=== PATIENT | female | born 1970 | race Two or more races ===

== ENCOUNTER 2024-03-31 09:28 | Emergency (ER) | payer OTHER, SELFPAY ==
--- NOTE | ~2024-03-31 | US_ITS ---
EXAMINATION: RIGHT LOWER EXTREMITY DEEP VENOUS ULTRASOUND CLINICAL INFORMATION: Right lower extremity pain and elevated d-dimer. COMPARISON: None. TECHNIQUE: Duplex Doppler imaging with compression maneuvers were performed of the right lower extremity deep venous system. FINDINGS: The visualized common femoral, femoral and popliteal veins demonstrate normal compressibility and color flow without evidence of venous thrombosis. Visualized portions of the calf veins demonstrate normal color fill-in suggesting patency. There is no evidence of a Bonner's cyst. US/US venous duplex LE RT IMPRESSION: No evidence of deep venous thrombosis involving the right lower extremity. Electronically signed by: Tino Berrios MD 03/31/2024 11:21 AM EDT
--- NOTE | ~2024-03-31 | XR_ITS ---
EXAMINATION: XR CHEST CLINICAL INFORMATION: Chest pain COMPARISON: None available. TECHNIQUE: 2 views of the chest were obtained. FINDINGS: The mediastinal silhouette is normal. No abnormal tracheal deviation. The lungs are symmetrically adequately expanded. Probable central bronchial thickening. No focal consolidation, changes of congestion, pleural effusions or pneumothorax are seen. Regional skeleton is intact. Visualized upper abdomen is unremarkable. XR/XR chest 2V IMPRESSION: No radiographic evidence of pneumonia. No acute pulmonary process. Probable central bronchial thickening. Electronically signed by: Jean Carlos Lynch MD 03/31/2024 10:06 AM EDT
--- NOTE | ~2024-03-31 | CT_ITS ---
EXAMINATION: CT ANGIOGRAM CHEST CLINICAL INFORMATION: Right chest pain shortness of breath] lower extremity pain, recent knee replacement COMPARISON: None available. TECHNIQUE: Multiple axial images were obtained through the chest after the administration of 50 mL of Omnipaque 350 intravenous contrast. Extensive vascular post-processing including two-dimensional and three-dimensional reformatted images were created and reviewed on an independent workstation. This CT examination was performed using dose optimization techniques as appropriate, variously including the following: *Automated exposure control *Adjustment of mA and/or kV according to patient size (this includes techniques or standardized protocols for targeted exams where dose is matched to indication/reason for exam; i.e. extremities or head) *Use of iterative reconstruction technique DLP: 309 mGy-cm FINDINGS: QUALITY OF STUDY/CONTRAST BOLUS: Satisfactory PULMONARY ARTERIES: No central or segmental pulmonary emboli. Pulmonary artery is not enlarged. THORACIC AORTA: No aneurysm or dissection. LUNG/PLEURA: Respiratory motion artifact limits evaluation. Biapical pleural-parenchymal scarring. Slight emphysematous changes. No large or suspicious pulmonary nodules or masses are noted. Central airways are patent. No pneumothorax. No large pleural effusion. Bibasilar atelectasis. MEDIASTINUM: Heart is not enlarged. No pericardial effusion. No coronary artery calcifications are noted. No enlarged lymph nodes per size criteria. No evidence of septal bowing or right heart strain. CHEST WALL/AXILLA: No axillary or internal mammary lymphadenopathy. OSSEOUS STRUCTURES: No acute or suspicious osseous abnormality. UPPER ABDOMEN: Hepatic steatosis. No reflux of contrast into the hepatic veins to suggest elevated right heart pressures. CT/CT angio chest PE protocol IMPRESSION: 1. No central or segmental pulmonary emboli. 2. Hepatic steatosis. Electronically signed by: Shahana Miranda MD 03/31/2024 12:46 PM EDT
--- NOTE | 2024-03-31 09:31 | ECG_ITS ---
Test Reason : chest pain Blood Pressure : / mmHG Vent. Rate : 084 BPM Atrial Rate : 084 BPM P-R Int : 140 ms QRS Dur : 088 ms QT Int : 392 ms P-R-T Axes : 042 -16 020 degrees QTc Int : 463 ms Sinus rhythm with occasional , and consecutive Premature ventricular complexes Moderate voltage criteria for LVH, may be normal variant ( R in aVL , Ezequiel product ) Nonspecific T wave abnormality Abnormal ECG No previous ECGs available Referred By: Generic ED Physician Electronically Signed By:Jon Mcbride
[2024-03-31 09:40] VITALS: BP 144/86; PULSE 75; RESP 18; TEMP 36.8; O2SAT 96; BMI 32.0
--- NOTE | 2024-03-31 09:56 | ED_ITS ---
HPI - URI/Sore Throat General Chief Complaint: Upper Respiratory Symptoms Stated Complaint: CP since monday Time Seen by Provider: 03/31/24 09:50 Source: patient Mode of arrival: ambulatory Limitations: no limitations History of Present Illness HPI Narrative: Patient is a 53 old female who presents to the emergency department for evaluation. She states that over the past 3 days she has been experiencing a pain in her chest localized to the right lower costal border. She reports that initially woke her out of her sleep, and she has since noticed the pain to be worse if she is lying down or while she is sitting. She feels as though she can not take a deep breath. She does admit to having a recent dry nonproductive cough, sore throat, and bilateral ear discomfort without changes in hearing or drainage. She attempted to take ibuprofen as well as Tums and case was heartburn related neither of which provided her with any relief. She does state that on 12/06/2023 she underwent a right knee replacement with NE[employer] since then she has been having intermittent numbness and pain to the right lower extremity. Denies swelling to the extremity. Denies fevers, chills, headache, dizziness, neck pain, neck stiffness, nausea, vomiting, abdominal pain, genitourinary symptoms. Related Data Previous Rx's ?Medication ?Instructions ?Recorded azithromycin 250 mg tablet See Rx Instructions PO .COMPLEX #6 03/31/24 tabs Allergies Allergy/AdvReac Type Severity Reaction Status Date / Time cyclobenzaprine Allergy Rash Verified 03/31/24 09:42 [From Flexeril] Review of Systems 2 Review of Systems: Yes all other systems are reviewed and are negative PMFSH Past Medical History Attestation statement: The following information was validated with the patient. Source: old records reviewed Social History Social History Advance Directives: No Advance Directives Information Provided: Yes Do you have a plan to hurt others: No Plan Physical Exam 2 Vital Signs: Vital Signs: Last Vital Signs Temp 98.2 F 03/31/24 09:40 Pulse 75 03/31/24 09:40 Resp 18 03/31/24 09:40 BP 144/86 H 03/31/24 09:40 Pulse Ox 96 03/31/24 09:40 O2 Del Method Room Air 03/31/24 09:40 BMI result Body Mass Index 32.0 Appearance: Alert.?Oriented to person, place and time. No acute distress.?Normal affect. Eyes: Pupils equal, round and reactive to light.? ENT: TM with effusions bilaterally, no erythema or significant bulging to suggest AROM. Pharynx normal.?? Neck: Normal inspection.? Neck supple.??No cervical adenopathy CVS: Heart sounds normal. Normal heart rate and rhythm.? Pulses normal.?? Respiratory: No respiratory distress.? Lung sounds clear to auscultation bilaterally?? Abdomen: Soft and non-tender. Normoactive bowel sounds. Skin: Skin warm and dry.? Normal skin color.? ? Extremities: No lower extremity edema.? No calf tenderness upon palpation Neuro: Moves all extremities spontaneously. Sensation intact bilaterally. No motor deficits. Ambulates with normal steady gait. Course Reevaluation(s) Reevaluation #1: CXR is without evidence of pneumonia, central bronchial thickening likely. D- dimer is elevated 512, will obtain CT angio to exclude pulmonary embolism as well as venous duplex of the right lower extremity.. Time: 10:46 Reevaluation #2: Venous duplex ultrasound of the right lower extremity without evidence of DVT. CT angio of the chest without evidence of pulmonary embolism.. Stable for discharge home, pain likely pleuritic secondary to respiratory infection /bronchitis Medications Administered Discontinued Medications Generic Name Dose Route Start Last Admin Trade Name Freq PRN Reason Stop Dose Admin Iohexol 65 ml 03/31/24 11:38 03/31/24 11:38 Iohexol 350 Mg/Ml 100 Ml Infus..Btl IV 03/31/24 11:39 65 ml ONCE ONE Administration Medical Decision Making Medical Decision Making MDM Narrative: Patient is a 53 year old female presenting for evaluation of chest pain and cough as per HPI. COVID-19/influenza/RSV testing negative. Strep a testing negative, physical examination not consistent with RPA/CHIEF PSYCHOLOGIST. No consistent with Cristopher's angina. She has bilateral effusions but no evidence of acute otitis media, no mastoid tenderness. On evaluation she has 2+ DP/PT pulse bilaterally, has no right calf tenderness upon palpation despite her report of pain and intermittent numbness, I suspect these symptoms are most likely secondary to anticipated recovery from her knee replacement rather than DVT, at this time would defer venous duplex imaging. However, in light of this and her report of localized pain to the right chest seemingly pleuritic component, will assess D- dimer. Patient is without risk factors for ACS, plan to obtain EKG and troponin. She has had an associated cough coupled with her ear pain and sore throat, may be upper respiratory infection/possibly pneumonia, CXR to be obtained to evaluate for further. Overall she is Well-appearing, nontoxic, afebrile, no tachycardia or tachypnea/hypoxia. Speaking clear full sentences, ambulatory with steady gait. Differential Diagnosis Differential Diagnoses: The differential diagnosis associated with the presentation includes ( See narrative above) Admission/Observation Consideration of admission/observation: Escalation of care including admission/observation considered ( see narrative above) Lab Data MDM Lab Attestation statement: I reviewed the patient's lab results. ( see narrative above) CBC is without leukocytosis anemia or thrombocytopenia. No electrolyte duration. No IRINEO. 03/31/24 10:22 03/31/24 10:22 Labs: Lab Results 03/31/24 03/31/24 Range/Units 10:04 10:22 WBC 6.1 (4.8-10.8) X10*3/uL RBC 4.52 (4.20-5.50) X10*6/uL Hgb 14.6 (12.0-16.0) g/dl Hct 43.4 (37.0-47.0) % MCV 96.0 (80.0-98.0) fL MCH 32.3 (27.0-33.0) pg MCHC 33.6 (31.0-35.0) g/dl RDW 11.8 (11.0-16.0) % Plt Count 292 (160-400) X10*3/uL MPV 9.0 L (9.4-12.3) fL Immature Gran % (Auto) 0.2 (0.0-0.4) % Neut % (Auto) 68.2 (45-73) % Lymph % (Auto) 21.6 (20-40) % Beauregard % (Auto) 6.1 (2-11) % Eos % (Auto) 3.1 (0-4) % Baso % (Auto) 0.8 (0-2) % Lymph # (Auto) 1.3 (1.2-4.9) X10*3/uL Beauregard # (Auto) 0.4 (0.1-1.2) X10*3/uL Eos # (Auto) 0.2 (0.0-0.4) X10*3/uL Baso # (Auto) 0.1 (0.0-0.2) X10*3/uL Abs Immat Gran (auto) 0.01 (0.00-0.03) X10*3/uL Absolute Neuts (auto) 4.2 (2.0-8.3) x10*3/uL Absolute Nucleated RBC 0.000 (0.0-0.012) X10*3/uL Nucleated RBC % (auto) 0.0 (0.0-0.2) /100WBC PT 10.5 L (10.9-12.4) SEC INR 0.9 (0.9-1.1) D-Dimer High Sensitivty 512 NG/ML Sodium 140 (135-145) mmol/L Potassium 4.2 (3.3-5.1) mmol/L Chloride 102 (96-108) mmol/L Carbon Dioxide 29 (22-29) mmol/L Anion Gap 13 (12-20) BUN 18 H (9-16) mg/dL Creatinine 0.95 (0.5-1.4) mg/dL Estim Creat Clear Calc 63.4 Estimated GFR > 60 Random Glucose 110 (60-115) mg/dL Calcium 9.5 (8.4-10.2) mg/dL Total Bilirubin 0.5 (0.0-1.0) mg/dL AST 29 (5-31) U/L ALT 26 (0-31) U/L Alkaline Phosphatase 79 (39-117) U/L Troponin I High Sens < 2.7 (<3.5-17.0) ng/L Total Protein 7.8 (6.5-8.0) g/dL Albumin 4.6 (3.5-5.0) g/dL Influenza Type A (PCR) NEGATIVE (Negative) Influenza Type B (PCR) NEGATIVE (Negative) RSV RNA Qual (PCR) NEGATIVE (Negative) SARS-CoV-2 RNA (RT-PCR) NEGATIVE (Negative) S. pyogenes GrpA BRITTNEY Negative (Negative) Independent Interpretation I performed an independent interpretation of an: EKG Interpretation: Rate: 84 Rhythm:? Sinus rhythm with PVC Normal P waves.? Normal RUBEN.?? Normal QRS complex.?? ST T wave :??No ST elevation, no ST depression qTC: 463 prior studies:? None available for review The study has been interpreted contemporaneously by me. Radiology Impression Discussion of test interpretation with radiology: I have reviewed the radiologist's reading. Radiologist Impression: XR/XR chest 2V IMPRESSION: No radiographic evidence of pneumonia. No acute pulmonary process. Probable central bronchial thickening. US/US venous duplex LE RT IMPRESSION: No evidence of deep venous thrombosis involving the right lower extremity. External Record Review External record reviewed: Outpatient record Prescription Management I considered prescription management with: Pain Medication ( acetaminophen/ibuprofen) Discharge Plan Discharge Clinical Impression: Bronchitis Patient Disposition: Home, Self-Care Instructions: Acute Bronchitis (ED) Additional Instructions: Imaging today does not reveal blood clot in the leg nor in the lungs which is very reassuring. A prescription for azithromycin has been sent to your pharmacy please complete the entire course. Be sure to rest, stay well hydrated drinking plenty of fluids, eat small frequent meals. Tylenol/ibuprofen can be used as needed for fever/pain. [id number] cold medications may be helpful as well for symptoms. Saline nasal spray, humidifier may be helpful for nasal congestion. You may return to the emergency department with any new or worsening symptoms or concerns. Follow-up with your primary care provider as needed. Prescriptions: New azithromycin 250 mg tablet See Rx Instructions .ROUTE .COMPLEX Qty: 6 0RF Rx Instructions: For 250 mg dose pack: take 500 mg today (day 1), then 250 mg for 4 days (days 2-5) Referrals: Rodney Purdy MD [Primary Care Provider] - Print Language: Taiwanese
--- OUTSIDE RECORDS SUMMARY | 2024-03-31 09:59 | XMS_ITS | Continuity of Care Document ---
Author Organization [facility] Address [address] [place] [address]- Care Team Providers Care Bonding Equipment Operator Name Role Phone Rodney Purdy MD Primary Care Physician [place] [facility] [id number] Date(s): 07/28/23 - 08/27/23 [facility] [address] [place] [address]- Attending Physician: Mary Smith Admitting Physician: Mary Smith Referring Physician: AdmtrMary Allergies, Adverse Reactions, Alerts Substance Reaction Severity Status cyclobenzaprine rash Active Medications amoxicillin 500 mg oral tablet 0 Refills, Maintenance, 07/28/23 14:19:00 EST, Partial fill upon patient request if the prescription is for a schedule II opioid drug. Start Date: 07/28/23 Status: Ordered buPROPion 150 mg/24 hours (XL) oral tablet, extended release TAKE 1 TABLET BY MOUTH EVERY DAY DIRECTED Start Date: 07/28/23 Status: Ordered escitalopram 10 mg oral tablet TAKE 1 TABLET BY MOUTH EVERY DAY DIRECTED Start Date: 07/28/23 Status: Ordered Hair, Skin & Nails = 5 mg, By Mouth, Daily, 0 Refills, Maintenance, 11/08/21 17:58:00 EDT, Partial fill upon patient request if the prescription is for a schedule II opioid drug. Start Date: 11/08/21 Status: Ordered HydrOXYzine = 25 mg, Daily at bedtime, 0 Refills, Maintenance, 04/19/22 7:56:00 EST, Partial fill upon patient request if the prescription is for a schedule II opioid drug. Start Date: 04/19/22 Status: Ordered Magnesium Carbonate = 54 mg, By Mouth, Daily, 0 Refills, Maintenance, 11/08/21 17:59:00 EDT, Partial fill upon patient request if the prescription is for a schedule II opioid drug. Start Date: 11/08/21 Status: Ordered methocarbamol 750 mg oral tablet TAKE 1 TABLET BY MOUTH THREE TIMES DAILY FOR 10 DAYS DIRECTED Start Date: 07/28/23 Status: Ordered Misc Rx Puravive, probiotics, Vitamin B12, D3, Fish oil, Refills 0, Maintenance, 07/28/23 14:18:00 EST, Supply Start Date: 07/28/23 Status: Ordered Multivitamin Daily, 0 Refills, Maintenance, 11/08/21 17:59:00 EDT, Partial fill upon patient request if the prescription is for a schedule II opioid drug. Start Date: 11/08/21 Status: Ordered traZODone 50 mg oral tablet TAKE 1 TABLET BY MOUTH EVERY DAY AT BEDTIME Start Date: 07/28/23 Status: Ordered ValACYclovir By Mouth, 0 Refills, Maintenance, 11/08/21 17:59:00 EDT, Partial fill upon patient request if the prescription is for a schedule II opioid drug. Start Date: 11/08/21 Status: Ordered Vitamin C By Mouth, Daily, 0 Refills, Maintenance, 11/08/21 17:59:00 EDT, Partial fill upon patient request if the prescription is for a schedule II opioid drug. Start Date: 11/08/21 Status: Ordered Problem List Condition Confirmation Course Effective Dates Status H ealth Status Informant Carpal tunnel syndrome Confirmed Active History of IBS Confirmed Active Hyperlipidemia Confirmed Active Severe obesity (BMI 35.0-39.9) with comorbidity Confirmed Active Social History Social History Type Response Smoking Status Never (less than 100 in lifetime) entered on: 07/28/23 Sex Patient Care team information Care Team Personnel Name: Gurwinder ROBLES, Rodney Aguilera Position: [facility] Outreach Member Role: PCP Address: Address: [address] [place] [address]- Care Team Related Persons Name: MARY KEYES Address: home [address] [place] [address]
--- OUTSIDE RECORDS SUMMARY | 2024-03-31 09:59 | XMS_ITS | Continuity of Care Document ---
Author Organization [facility] Address [address] [place] [address]- Care Team Providers Care Material Stockkeeper Yard Name Role Phone Gurwinder ROBLES, Rodney Aguilera Primary Care Physician Encounter [facility] Date(s): 10/09/20 - 11/08/20 [facility] [address] [place] [id number] Attending Physician: Admtr, Ar8 Admitting Physician: Admtr, Ar8 Referring Physician: Admtr, Ar8 Allergies, Adverse Reactions, Alerts Substance Reaction Severity Status NKA Active
--- OUTSIDE RECORDS SUMMARY | 2024-03-31 09:59 | XMS_ITS | Continuity of Care Document ---
Author Organization [facility] Address [address] [place] [address]- Care Team Providers Care Lockstitch Lining Setter Name Role Phone Gurwinder ROBLES, Rodney Aguilera Primary Care Physician ( [phone] [place] [facility] [place] - 06/05/[address] [address]- Attending Physician: Mary Smith Admitting Physician: Mary Smith Referring Physician: AdmtrMary Allergies, Adverse Reactions, Alerts Substance Reaction Severity Status cyclobenzaprine Active Medications Hair, Skin & Nails = 5 mg, [...] opioid drug. Start Date: 11/08/21 Status: Ordered Multivitamin Daily, 0 Refills, Maintenance, 11/08/21 17:59:00 EDT, Partial fill upon patient request if the prescription is for a schedule II opioid drug. Start Date: 11/08/21 Status: Ordered norethindrone 5 mg oral tablet 5 mg, 1, tablet, By Mouth, Daily, # 30 tablet, Refills 0, Maintenance, 04/19/22 7:58:00 EST, Partial fill upon patient request if the prescription is for a schedule II opioid drug. Start Date: 04/19/22 Status: Ordered Sutab oral tablet See Instructions, complete as per split prep ins, # 1 kit, 0 Refills, Maintenance, 04/14/22 12:51:00 EST, [id number], Partial fill upon patient request if the prescription is for a schedule II opioid drug., complete as per split prep... Start Date: 04/14/22 Status: Ordered ValACYclovir By Mouth, 0 Refills, [...] of IBS Confirmed Active Hyperlipidemia Confirmed Active Obese class I Confirmed Active Patient Care team information Care Team Personnel Name: Gurwinder ROBLES, Rodney Aguilera Position: [facility] Outreach Member Role: PCP Address: Address: [address] [place] [address] Care Team Related Persons Name: MARY KEYES Address: [address] [address]
--- OUTSIDE RECORDS SUMMARY | 2024-03-31 09:59 | XMS_ITS | Continuity of Care Document ---
Author Organization [facility] Address [address] [place] [address]- Care Team Providers Care Fire Range Technician Name Role Phone Rodney Purdy MD Primary Care Physician [place] [facility] [place]14[place] 11/08/20 [facility] [address] [place] [id number] Attending Physician: Rodney Purdy MD Admitting Physician: Rodney Purdy MD Referring Physician: Rodney Purdy MD Allergies, Adverse Reactions, Alerts Substance Reaction Severity Status NKA Active
--- OUTSIDE RECORDS SUMMARY | 2024-03-31 09:59 | XMS_ITS | Continuity of Care Document ---
Author Organization [facility] Address [address] [place] [address]- Care Team Providers Care Automation Sales Manager Name Role Phone Gurwinder ROBLES, Rodney Aguilera Primary Care Physician Encounter [facility] Date(s): 05/05/21 - 05/05/[address] [address] Attending Physician: Surjit Morgan MD Allergies, Adverse Reactions, Alerts Substance Reaction Severity Status NKA Active
--- OUTSIDE RECORDS SUMMARY | 2024-03-31 09:59 | XMS_ITS | Continuity of Care Document ---
Author Organization [facility] Address [address] [place] [address]- Care Team Providers Care Core Inserter Name Role Phone Gurwinder ROBLES, Rodney Aguilera Primary Care Physician ( [phone] [place] [facility] [place] 07/22/22 - 08/21/[address] [address]- Attending Physician: Mary Smith Admitting Physician: Mary [...] kit, 0 Refills, Maintenance, 04/14/22 12:51:00 EST, [id number], Partial fill upon patient request if the [...] Personnel Name: Gurwinder ROBLES, Rodney Aguilera Position: [facility] Outreach Member Role: PCP Address: Address: [address] [place] [address] Care Team Related Persons Name: MARY KEYES Address: [address] [address]
--- OUTSIDE RECORDS SUMMARY | 2024-03-31 09:59 | XMS_ITS | Continuity of Care Document ---
Author Organization [facility] Address [address] [place] [address]- Care Team Providers Care Special Education Tutor Name Role Phone Rodney Purdy MD Primary Care Physician Encounter [facility] Date(s): 11/11/19 - 03/25/[address] [address]- [facility] Attending Physician: Manuel Fregoso MD Admitting Physician: Manuel Fregoso MD Referring Physician: Manuel Fregoso MD Allergies, Adverse Reactions, Alerts Substance Reaction Severity Status NKA Active
--- OUTSIDE RECORDS SUMMARY | 2024-03-31 09:59 | XMS_ITS | Continuity of Care Document ---
Author Organization [facility] Address [address] [place] [address]- Care Team Providers Care Girls Tennis Coach Name Role Phone Rodney Purdy MD Primary Care Physician [place] [facility] [place](s): 12/31/21 - 04/30/22 [facility] [address] [place], [place] [id number]- Attending Physician: Leonila Hansen MD Admitting Physician: Leonila Hansen MD Referring Physician: Rodney Purdy MD Allergies, [...] kit, 0 Refills, Maintenance, 04/14/22 12:51:00 EST, [facility][id number], Partial fill upon patient request if the [...] Personnel Name: Gurwinder ROBLES, Rodney Aguilera Position: [facility] Outreach Member Role: PCP Address: Address: [address] [place] [address] Care Team Related Persons Name: MARY KEYES Address: [address] [address]
--- OUTSIDE RECORDS SUMMARY | 2024-03-31 09:59 | XMS_ITS | Continuity of Care Document ---
Author Organization [facility] Address [address] [place] [address]- Care Team Providers Care Wool Handler Name Role Phone Gurwinder ROBLES, Rodney Aguilera Primary Care Physician ( [phone] [place] [facility] [place]22 [facility] [address] [place] [address]- [place] Allergies, Adverse Reactions, Alerts Substance Reaction Severity Status cyclobenzaprine Active Medications Hair, Skin & Nails = 5 mg, By Mouth, Daily, 0 Refills, Maintenance, 11/08/21 17:58:00 EDT, Partial fill upon patient request if the prescription is for a schedule II opioid drug. Start Date: 11/08/21 Status: Ordered Magnesium Carbonate = 54 mg, [...] opioid drug. Start Date: 11/08/21 Status: Ordered Sutab oral tablet See Instructions, complete as per split prep ins, # 1 kit, 0 Refills, Maintenance, 02/25/22 14:41:00 EDT, [facility] #[id number], Partial fill upon patient request if the prescription is for a schedule II opioid drug., complete as per split prep... Start Date: 02/25/22 Status: Ordered ValACYclovir By Mouth, 0 Refills, [...] I Confirmed Active Patient Care team information Personnel Name: Gurwinder ROBLES, Rodney Aguilera Address: Address: [address] [place] [address], [address]
--- OUTSIDE RECORDS SUMMARY | 2024-03-31 09:59 | XMS_ITS | Continuity of Care Document ---
Author Organization [facility] Address [address] [place] [address]- Care Team Providers Care Container Coordinator Name Role Phone Gurwinder ROBLES, Rodney Aguilera Primary Care Physician Encounter [facility] Date(s): 09/14/20 - 10/14/20 [facility] [address] [place] [id number] Allergies, Adverse Reactions, Alerts Substance Reaction Severity Status NKA Active
--- OUTSIDE RECORDS SUMMARY | 2024-03-31 09:59 | XMS_ITS | Continuity of Care Document ---
Author Organization [facility] Address [address] [place] [address]- Care Team Providers Care Dictaphone Operator Name Role Phone Rodney Purdy MD Primary Care Physician [place] [facility] [place]s): 03/31/22 - 04/30/22 [facility] [address] [place] [address]- Attending Physician: Mary Smith Admitting Physician: Mary Smith Referring Physician: Admtr ArMaurice Allergies, Adverse Reactions, Alerts Substance Reaction Severity [...] kit, 0 Refills, Maintenance, 04/14/22 12:51:00 EST, [facility] #[id number], Partial fill upon patient request if the [...] HOSPITAL Outreach Member Role: PCP Address: Address: [address] [place] [address]- Care Team Related Persons Name: MARY KEYES Address: [address] [address]
--- OUTSIDE RECORDS SUMMARY | 2024-03-31 09:59 | XMS_ITS | Continuity of Care Document ---
Author Organization [facility] Address [address] [place] [address]- Care Team Providers Care Paid Internship Name Role Phone Rodney Purdy MD Primary Care Physician [place] [facility] [place] - 11/03/[address] [address]- Encounter Diagnosis Dizziness and giddiness(Final) - Discharge Disposition: A-D/C Home Attending Physician: Rodney Purdy MD Admitting Physician: [...] kit, 0 Refills, Maintenance, 04/14/22 12:51:00 EST, [facility] #[id number], Partial fill upon patient request if the [...] Care team information Care Team Personnel Name: Rodney Purdy MD Position: S Outreach Member Role: PCP Address: Address: [address] [place] [address] Care Team Related Persons Name: KEYESMARY Address: [place] [address]
--- OUTSIDE RECORDS SUMMARY | 2024-03-31 09:59 | XMS_ITS | Continuity of Care Document ---
Author Organization [facility] Address [address] [place] [id number]- Care Team Providers Care Perfumer Name Role Phone Rodney Purdy MD Primary Care Physician [place] [facility] [place] - 11/10/[address] [address]- Discharge Disposition: A-D/C Home Attending Physician: Surjit Morgan MD Admitting Physician: Surjit Morgan MD Referring Physician: Surjit Morgan MD Allergies, Adverse Reactions, Alerts No Known Allergies Medications escitalopram 10 mg oral tablet 2 tablet = 20 mg, By Mouth, Daily, # 90 tablet, 0 Refills, Maintenance, 11/08/21 17:58:00 EDT, Tablet, Partial fill upon patient request if the prescription is for a schedule II opioid drug. Start Date: 11/08/21 Status: Ordered Hair, Skin & Nails = 5 mg, By Mouth, Daily, 0 Refills, Maintenance, 11/08/21 17:58:00 EDT, Partial fill upon patient request if the prescription is for a schedule II opioid drug. Start Date: 11/08/21 Status: Ordered HydrOXYzine 0 Refills, Maintenance, 11/08/21 17:59:00 EDT, Partial [...] opioid drug. Start Date: 11/08/21 Status: Ordered ValACYclovir By Mouth, 0 Refills, Maintenance, 11/08/21 17:59:00 EDT, Partial fill upon patient request if the prescription is for a schedule II opioid drug. Start Date: 11/08/21 Status: Ordered Vitamin C By Mouth, Daily, 0 Refills, Maintenance, 11/08/21 17:59:00 EDT, Partial fill upon patient request if the prescription is for a schedule II opioid drug. Start Date: 11/08/21 Status: Ordered Wellbutrin XL 150 mg/24 hours oral tablet, extended release 1 tablet = 150 mg, By Mouth, Every 24 hours, # 30 tablet, 1 Refills, Maintenance, 11/09/21 10:56:00EDT, [id number], Partial fill upon patient request if the prescription is for a schedule II opioid drug., 154.94, cm, 11/08/21 18:00:0... Start Date: 11/09/21 Status: Ordered Problem List Condition Effective Dates Status Health Status Inform ant Carpal tunnel syndrome(Confirmed) Active History of IBS(Confirmed) Active Hyperlipidemia(Confirmed) Active Obese class I(Confirmed) Active Vital Signs Most recent to oldest [Reference Range]: 1 2 3 Oxygen Saturation [94-100 %] 100 % (11/10/21 10:15 AM) 98 % (11/10/21 10:00 AM) 94 % (11/10/21 9:45 AM) Pulse Rate [55-90 bpm] 70 bpm (11/10/21 7:49 AM) Blood Pressure [90-138/55-84 mm Hg] 145/113mm Hg *H* (11/10/21 10:15 AM) 152/102mm Hg *H* (11/10/21 10:00 AM) 164/98mm Hg *H* (11/10/21 9:45 AM) Respiratory Rate [16-30 br/min] 11 br/min *L* (11/10/21 10:15 AM) 10 br/min *L* (11/10/21 10:00 AM) 14 br/min *L* (11/10/21 9:45 AM) Temperature [96.8-100.4 DegF] 97.5 DegF (11/10/21 9:45 AM) 98 DegF (11/10/21 7:49 AM) Mode of Delivery (Oxygen) Room air (11/10/21 10:30 AM) Room air (11/10/21 9:45 AM) Room air (11/10/21 7:49 AM) Blood pressure sites Arm, left (11/10/21 9:45 AM) Arm, left (11/10/21 7:49 AM) Temperature Route Temporal (11/10/21 9:45 AM) Temporal (11/10/21 7:49 AM) Dry Weight 80.8 kg (11/10/21 7:49 AM)
--- OUTSIDE RECORDS SUMMARY | 2024-03-31 09:59 | XMS_ITS | Continuity of Care Document ---
Author Organization [facility] Address [address] [place] [phone]- Care Team Providers Care Clin Tech Name Role Phone Rodney Purdy MD Primary Care Physician En[place] [facility] [place]): 01/25/22 - 01/26/[address] [address]- Discharge Disposition: A-D/C Walkout Attending Physician: Not on Staff, Attending MD Admitting Physician: Not on Staff, Admitting MD Referring Physician: Not on Staff, Referring MD Allergies, Adverse Reactions, Alerts Substance Reaction Severity Status cyclobenzaprine Active Medications Effexor XR 37.5 mg oral capsule, extended release 37.5 mg, 1, capsule, By Mouth, Daily, # 10 capsule, Refills 0, Tot. Refills 0, Maintenance, 12/31/21 12:59:00 EDT, Route to Pharmacy Electronically, [facility] #[id number], Partial fill upon patient request if the prescription is for a schedule I... Start Date: 12/31/21 Status: Ordered Effexor XR 75 mg oral capsule, extended release 75 mg, 1, capsule, By Mouth, Daily, start after taking Effexor 37.5mg for 10 days. this is a dose increase, # 30 capsule, Refills 0, Tot. Refills 0, Maintenance, 12/31/21 12:59:00 EDT, Route to Pharmacy Electronically, [facility] #[id number], [place]... Start Date: 12/31/21 Status: Ordered Hair, Skin & Nails = [...] Date: 11/08/21 Status: Ordered Problem List Condition Effective Dates Status Health Status Inform ant Carpal tunnel syndrome(Confirmed) Active History of IBS(Confirmed) Active Hyperlipidemia(Confirmed) Active Obese class I(Confirmed) Active Vital Signs Most recent to oldest [Reference Range]: 1 2 3 Oxygen Saturation [94-100 %] 98 % (01/26/22 2:07 AM) 100 % (01/26/22 12:02 AM) 100 % (01/25/22 10:21 PM) Pulse Rate [55-90 bpm] 71 bpm (01/26/22 2:07 AM) 75 bpm (01/26/22 12:02 AM) 72 bpm (01/25/22 10:21 PM) Blood Pressure [90-138/55-84 mm Hg] 130/90mm Hg (01/26/22 2:07 AM) 138/89mm Hg (01/26/22 12:02 AM) 136/87mm Hg (01/25/22 10:21 PM) Respiratory Rate [16-30 br/min] 16 br/min (01/25/22 8:19 PM) Temperature [96.8-100.4 DegF] 98.0 DegF (01/26/22 2:07 AM) 97.8 DegF (01/26/22 12:02 AM) 97.6 DegF (01/25/22 10:21 PM) Mode of Delivery (Oxygen) Room air (01/26/22 12:02 AM) Room air (01/25/22 10:21 PM) Room air (01/25/22 8:19 PM) Blood pressure sites Arm, left (01/26/22 2:07 AM) Arm, right (01/26/22 12:02 AM) Arm, right (01/25/22 10:21 PM) Temperature Route Oral (01/26/22 2:07 AM) Temporal (01/26/22 12:02 AM) Temporal (01/25/22 10:21 PM)
--- OUTSIDE RECORDS SUMMARY | 2024-03-31 09:59 | XMS_ITS | Continuity of Care Document ---
Author Organization [facility] Address [address] [place] [address]- Care Team Providers Care Crepe Machine Operator Name Role Phone Gurwinder ROBLES, Rodney Aguilera Primary Care Physician ( [phone] [facility] [id number] Date(s): 07/28/23 - 08/04/23 [facility] [address] [place] [id number] Attending Physician: Linden Fernandes MD Referring Physician: Wilder ROBLES, Osmin Hutchison Allergies, Adverse Reactions, Alerts Substance Reaction Severity [...] obesity (BMI 35.0-39.9) with comorbidity Confirmed Active Procedures Procedure Date Related Diagnosis Body Site Status Tubal ligation Completed Vital Signs Most recent to oldest [Reference Range]: 1 Height 155 cm (07/28/23 2:11 PM) Weight 86.5 kg (07/28/23 2:11 PM) Oxygen Saturation [94-100 %] 98 % (07/28/23 2:11 PM) Pulse Rate [55-90 bpm] 83 bpm (07/28/23 2:11 PM) Body Mass Index [18.5-24.99 kg/m2] 36 kg /m2 *>HHI* (07/28/23 2:11 PM) Blood Pressure [90-138/55-84 mm Hg] 126/ 86mm Hg (07/28/23 2:11 PM) Respiratory Rate [16-30 br/min] 16 br/mi n (07/28/23 2:11 PM) Mode of Delivery (Oxygen) Room air (07/28/23 2:11 PM) Blood pressure sites Arm, right (07/28/23 2:11 PM) Dry Weight 86.5 kg (07/28/23 2:11 PM) Weight Obtained Via Standing scale (07/28/23 2:11 PM) Dry Weight Obtained Via Standing scale (07/28/23 2:11 PM) Social History Social History Type Response Smoking Status Never (less than 100 in lifetime) entered on: 07/28/23 Sex EKG study * Event Display: ECG 12-Lead Authored Date: Please click on pdf link to open report * Event Display: ECG 12-Lead Authored Date: Ventricular Rate: 75 BPM Atrial Rate: 75 BPM P-R Interval: 152 ms QRS Duration: 100 ms Q-T Interval: 396 ms QTC Calculation(Bazett): 442 ms P [place]: 53 degrees R [place]: 2 degrees T [place]: 20 degrees Normal sinus rhythm Cannot rule out Anterior infarct , age undetermined Abnormal ECG When compared with ECG of 25-JAN-2022 22:07, No significant change was found Confirmed by RUSTAM KELLY ([id number]) on 07/31/2023 3:13:59 PM [place]: RUSTAM KELLY Patient Care team information Care Team Personnel Name: Rodney Purdy MD Position: S Outreach Member Role: PCP Address: Address: [address] [place] [address] Care Team Related Persons Name: MARY KEYES Address: home [address] [place] [address]
[2024-03-31 10:28] LABS: MANUAL DIFF FLAG NO
[2024-03-31 10:34] LABS: Basophils Absolute Auto 0.1 X10*3/uL (0.0-0.2); Basophils Percent Auto 0.8 % (0-2); Eosinophils Absolute Auto 0.2 X10*3/uL (0.0-0.4); Eosinophils Percent Auto 3.1 % (0-4); Hematocrit 43.4 % (37.0-47.0); Hemoglobin 14.6 g/dl (12.0-16.0); INTERNATIONAL NORM RATIO 0.9 (0.9-1.1); Imm Gran Abs Auto 0.01 X10*3/uL (0.00-0.03); Imm Gran Pct Auto 0.2 % (0.0-0.4); Lymphocytes Absolute Auto 1.3 X10*3/uL (1.2-4.9); Lymphocytes Percent Auto 21.6 % (20-40); Mean Corpuscular HGB Conc 33.6 g/dl (31.0-35.0); Mean Corpuscular Hemoglobin 32.3 pg (27.0-33.0); Monocytes Absolute Auto 0.4 X10*3/uL (0.1-1.2); Monocytes Percent Auto 6.1 % (2-11); Neutrophils Absolute Auto 4.2 x10*3/uL (2.0-8.3); Neutrophils Percent Auto 68.2 % (45-73); Platelet Count 292 X10*3/uL (160-400); Prothrombin Time 10.5 SEC (10.9-12.4); Red Blood Count 4.52 X10*6/uL (4.20-5.50); Red Cell Distribution Width 11.8 % (11.0-16.0); White Blood Count 6.1 X10*3/uL (4.8-10.8)
[2024-03-31 10:36] LABS: D Dimer High Sensitivity 512 NG/ML
[2024-03-31 10:45] LABS: IDNOW Serial# 08D9AD1C; Strep A Nucleic Acid Negative (Negative)
[2024-03-31 10:50] LABS: Alanine Aminotransferase 26 U/L (0-31); Albumin Level 4.6 g/dL (3.5-5.0); Alkaline Phosphatase 79 U/L (39-117); Anion Gap 13 (12-20); Aspartate Amino Transferase 29 U/L (5-31); Bilirubin Total 0.5 mg/dL (0.0-1.0); Blood Urea Nitrogen 18 mg/dL (9-16); Calcium 9.5 mg/dL (8.4-10.2); Carbon Dioxide 29 mmol/L (22-29); Chloride 102 mmol/L (96-108); Creatinine Clr Calc Pharmacy 63.4; Estimated Glomerular Filt Rate > 60; Glucose Random 110 mg/dL (60-115); Potassium 4.2 mmol/L (3.3-5.1); Sodium 140 mmol/L (135-145); Total Protein 7.8 g/dL (6.5-8.0)
[2024-03-31 10:50] LABS: Influenza A PCR NEGATIVE (Negative); Influenza B PCR NEGATIVE (Negative); Resp Syncy Virus RNA Qual PCR NEGATIVE (Negative); SARS COV2 PCR INHOUSE NEGATIVE (Negative)
[2024-03-31 10:57] LABS: Troponin-I High Sensitivity < 2.7 ng/L (<3.5-17.0)
[2024-03-31] MEDS: iohexoL 350 MG/ML 100 ML INFUS..BTL 65 ML IV (11:38)
[2024-03-31 13:37] VITALS: BP 144/86; PULSE 75; RESP 18; TEMP 36.8; O2SAT 96
== END 2024-03-31 13:38 | disposition home or self-care (01) ==
PROVIDERS: Nurse Practitioner Family; Emergency Provider Emergency Medicine; PCP Internal Medicine
DX: J40 Bronchitis, not specified as acute or chronic (principal); R07.89 Other chest pain; R60.0 Localized edema; R05.9 Cough, unspecified; R06.02 Shortness of breath; Z79.899 Other long term (current) drug therapy; Z03.818 Encounter for observation for suspected exposure to other biological agents ruled out
CPT/HCPCS: 0241U; 36415; 71046; 71275; 80053; 84484; 85025; 85379; 85610; 87651; 93005; 93971; 99283; Q9967

== ENCOUNTER → 2024-03-31 09:31 | Outpatient (BNV) | payer OTHER, SELFPAY | PROVIDERS: Emergency Provider Emergency Medicine; PCP Internal Medicine; Visit Provider Internal Medicine Cardiovascular Disease | DX: I49.3 Ventricular premature depolarization (principal) | CPT/HCPCS: 93010 ==

== ENCOUNTER 2025-01-18 10:29 | Emergency (ER) | payer OTHER, SELFPAY ==
[2025-01-18 10:36] VITALS: BP 156/77; BP 170/101; PULSE 69; PULSE 70; RESP 18; TEMP 36.6; O2SAT 100; O2SAT 99; BMI 30.9
--- NOTE | 2025-01-18 10:42 | ED.GENADULT ---
HPI - General Adult General Chief complaint: Nausea/Vomiting/Diarrhea Stated complaint: SHAKINESS SWEATING VOMITING Time Seen by Provider: 01/18/25 10:41 Source: patient and EMS Mode of arrival: EMS Limitations: no limitations History of Present Illness ED Provider: Jana Leon PA-C HPI narrative: Patient is a 54 year old assigned female at with a past medical history of anxiety, depression, and herpes on (valacyclovir PRN) presenting with nausea, vomiting, diarrhea, and epigastric pain for the past 4 hours. Patient reports drinking 5 shots of tequila last night but denies a history of alcohol use. She says she rarely drinks and last night was a special occasion. She says she had vomited 7 times this morning with her initial emesis being red, then it turned yellow with specks of red, then it became fully yellow. She endorses chills that are now resolved and headaches since this morning but denies fever, chest pain, and dysuria. Onset (ago): hour(s) (4) Related Data Previous Rx's ?Medication ?Instructions ?Recorded azithromycin 250 mg tablet See Rx Instructions PO .COMPLEX #6 03/31/24 tabs aluminum-mag hydroxide-simethicone 5 ml PO 7XD PRN dyspepsia #3,000 mL 01/18/25 200 mg-200 mg-20 mg/5 mL oral susp (Maalox Advanced) omeprazole 20 mg capsule,delayed 20 mg PO DAILY 7 days #7 caps 01/18/25 release Allergies Allergy/AdvReac Type Severity Reaction Status Date / Time cyclobenzaprine (From Allergy Rash Verified 01/18/25 10:42 Flexeril) Review of Systems Constitutional: Constitutional: Reports no additional constitutional complaints, Reports chills (now resolved), Denies fever(s) and Denies night sweats Eyes: Eyes: Reports no additional eye complaints, Denies change in vision and Reports eye discharge ENT: Reports dysphagia (for many months) and Denies dizziness Cardiovascular: Cardiovascular: Reports no additional cardiovascular complaints, Denies chest pain, Reports Epigastric Pain, Denies lightheadedness, Denies Loss of Consciousness and Denies dyspnea Respiratory: Respiratory: Reports no additional respiratory complaints and Denies dyspnea Gastrointestinal: Gastrointestinal: Reports as per HPI, Reports abdominal pain, Reports dysphagia (for many months), Reports diarrhea, Reports nausea (resolved ) and Reports hematemesis (resolved) Genitourinary: Genitourinary: Reports no additional female genitourinary complaints Musculoskeletal: Musculoskeletal: Reports no additional musculoskeletal complaints, Denies numbness and Denies tingling Neurologic: Denies dizziness, Denies numbness and Denies tingling Psychiatric: Psychiatric: Reports no additional psychiatric complaints Endocrine: Endocrine: Reports no additional endocrine complaints Hematologic/Lymphatic: Hematologic/Lymphatic: Reports no additional hematologic/lymphatic complaints Allergic/Immunologic: Allergic/Immunologic: Reports no additional allergic/immunologic complaints [facility] Past Medical History Attestation statement: The following information was validated with the patient. Source: old records reviewed and nursing notes reviewed Social History Social History Smoked in Last 30 Days: No Use of substances other than those prescribed or required for medical reasons: Yes Substance Use Type: Marijuana Substance Use Frequency: Occasionally Last Used Substance: Unknown Any prior treatment program specific to substance use: No Advance Directives: No Advance Directives Information Provided: Yes Patient : No Physical Exam ED Vital Signs: Vital Signs - 24 hr 01/18/25 10:36 Temperature 97.8 F Pulse Rate 70 Respiratory Rate 18 Blood Pressure 156/77 H Pulse Oximetry 99 Oxygen Delivery Method Room Air BMI result Body Mass Index 30.9 Const General: cooperative, no acute distress, alert and awake Nutritional Appearance: well nourished Orientation/consciousness: patient oriented x3 HENMT Head: Yes normal to inspection and Yes atraumatic Ears: hearing grossly normal bilaterally and external ears normal General nose exam: Normal external nose present, no nasal discharge noted and no epistaxis Face and sinus: Yes normal facial exam, No abrasion and No laceration Mouth: Normal oral and palatal mucosa present, no drooling and no muffled voice Eyes General: appearance normal, both eyes and all related structures Periorbital: periorbital findings normal Eyelids: Yes eyelids normal Conjunctivae: conjunctivae normal Pupils: Equal, round and reactive pupils present EOM: EOMs intact bilaterally Neck Neck: Yes normal visual inspection and Yes full ROM Resp Effort & Inspection: normal respiratory effort and able to speak in complete sentences Auscultation: clear to auscultation bilaterally GI Inspection: Yes normal to inspection Palpation (GI): Soft to palpation and Tenderness to palpation present (GI) in the epigastrum and in the LUQ Neuro General: patient oriented x3, moves all extremities and CN's II-XI intact bilaterally Cranial nerves: Yes Equal, round and reactive pupils present Cognition (Neuro): normal cognition Extrem General: Yes normal to inspection, Yes full ROM and Yes capillary refill normal Psych Appearance: grossly normal Mental Status: mental status grossly normal Affect: normal affect Attitude: cooperative Thought process: Normal thought process present Thought content: Normal thought content present Insight: Good insight present (Psych) Medications Administered Discontinued Medications Generic Name Dose Route Start Last Admin Trade Name Freq PRN Reason Stop Dose Admin Sodium Chloride 1,000 mls @ 999 mls/hr 01/18/25 11:00 01/18/25 12:23 Ns IV 01/18/25 12:00 Infused .Q1H1M BRUCE Infusion Ondansetron HCl 4 mg 01/18/25 10:48 01/18/25 11:02 Ondansetron Hcl 4 Mg/2 Ml Vial IVPUSH 01/18/25 10:49 4 mg ONCE ONE Administration Pantoprazole Sodium 40 mg 01/18/25 10:48 01/18/25 11:02 Pantoprazole Sodium 40 Mg/10 Ml Vial IVPUSH 01/18/25 10:49 40 mg ONCE ONE Administration Medical Decision Making Medical Decision Making MDM Narrative: Patient is a 54 year old assigned female at with a past medical history of anxiety, depression, and herpes on (valacyclovir PRN) presenting with nausea, vomiting, diarrhea, and epigastric pain for the past 4 hours. Patient's physical exam was as noted in the physical exam portion of this note. Patient's blood work was unremarkable. Patient's EKG was unremarkable. I explained my physical exam findings as well as all test results to the patient. I answered all questions asked by the patient. Patient was given protonix, maalox, and fluids which she stated helped her symptoms. Patient's clinical presentation is most consistent with acid reflux vs. peptic ulcer vs. alcohol intoxication. I stressed the importance of the patient taking her medication as directed (either prescribed or as the over the counter packaging recommends). I stressed the importance of the patient following up with her primary care provider and the GI team. I stressed the importance of the patient returning to the emergency department immediately if her symptoms were to worsen or if she were to develop any dizziness, shortness of breath, difficulty breathing, chest pain, blurry vision, loss of vision, nausea, vomiting, abdominal pain, fever, chills, back pain, or any other complaints. Patient verbalized agreement and understanding with this treatment plan and discharge. Differential Diagnosis Differential Diagnoses: The differential diagnosis associated with the presentation includes Alcohol use GERD Acid reflux Nausea Vomiting Peptic ulcer Admission/Observation Consideration of admission/observation: Escalation of care including admission/observation considered Patient would have been admitted to the hospital had her work up had any findings where hospital admission was appropriate and her clinical presentation warranted hospital admission. Lab Data [facility] Lab Attestation statement: I reviewed the patient's lab results. My interpretation of these results are in the [facility] Rationale portion of this note. 01/18/25 11:00 01/18/25 11:00 Labs: Lab Results 01/18/25 Range/Units 11:00 WBC 9.1 (4.8-10.8) X10*3/uL RBC 4.55 (4.20-5.50) X10*6/uL Hgb 14.5 (12.0-16.0) g/dl Hct 43.1 (37.0-47.0) % MCV 94.7 (80.0-98.0) fL MCH 31.9 (27.0-33.0) pg MCHC 33.6 (31.0-35.0) g/dl RDW 12.6 (11.0-16.0) % Plt Count 318 (160-400) X10*3/uL MPV 9.2 L (9.4-12.3) fL Immature Gran % (Auto) 0.3 (0.0-0.4) % Neut % (Auto) 86.6 H (45-73) % Lymph % (Auto) 9.3 L (20-40) % Atlantic % (Auto) 3.2 (2-11) % Eos % (Auto) 0.2 (0-4) % Baso % (Auto) 0.4 (0-2) % Lymph # (Auto) 0.8 L (1.2-4.9) X10*3/uL Atlantic # (Auto) 0.3 (0.1-1.2) X10*3/uL Eos # (Auto) 0.0 (0.0-0.4) X10*3/uL Baso # (Auto) 0.0 (0.0-0.2) X10*3/uL Abs Immat Gran (auto) 0.03 (0.00-0.03) X10*3/uL Absolute Neuts (auto) 7.8 (2.0-8.3) x10*3/uL Absolute Nucleated RBC 0.000 (0.0-0.012) X10*3/uL Nucleated RBC % (auto) 0.0 (0.0-0.2) /100WBC Sodium 145 (135-145) mmol/L Potassium 3.9 (3.3-5.1) mmol/L Chloride 105 (96-108) mmol/L Carbon Dioxide 28 (22-29) mmol/L Anion Gap 16 (12-20) BUN 12 (9-16) mg/dL Creatinine 0.92 (0.5-1.4) mg/dL Estim Creat Clear Calc 63.6 Estimated GFR > 60 Random Glucose 112 (60-115) mg/dL Calcium 9.4 (8.4-10.2) mg/dL Magnesium 2.1 (1.6-2.6) mg/dL Total Bilirubin 0.6 (0.0-1.0) mg/dL AST 30 (5-31) U/L ALT 18 (0-31) U/L Alkaline Phosphatase 83 (39-117) U/L Troponin I High Sens < 2.7 (<3.5-17.0) ng/L Total Protein 7.9 (6.5-8.0) g/dL Albumin 4.7 (3.5-5.0) g/dL Lipase 18 (8-78) U/L Ethyl Alcohol < 10 mg/dL Tests considered The following testing was considered but not selected: I considered obtaining a CT scan of the patient's abdomen / pelvis however, the patient's current presentation and work up did not warrant this at this time. I discussed this with the patient who verbalized understanding and agreement. Discharge Plan Discharge Clinical Impression: GERD (gastroesophageal reflux disease) Qualifiers: Esophagitis presence: esophagitis presence not specified Qualified Code(s): K21.9 - Gastro-esophageal reflux disease without esophagitis Nausea & vomiting Qualifiers: Vomiting type: unspecified Qualified Code(s): R11.2 - Nausea with vomiting, unspecified Patient Disposition: Home, Self-Care Instructions: GERD (Gastroesophageal Reflux Disease) (DC), Acute Nausea and Vomiting (DC) Additional Instructions: Your work up today was reassuring there is no EMERGENT cause for your symptoms. I believe part of your symptoms are due to untreated GERD (acid reflux). I have prescribed you maalox + omeprazole for this. You may take famotidine (pepcid) over the counter as needed for this as well. Please avoid NSAID use (motrin, ibuprofen, advil, Excedrin, etc.) and alcohol use. Follow up with a GI specialist. IF you are prescribed home medications and/or you are taking over the counter medications at home - it is very important you continue to do so as prescribed / directed unless told otherwise. Follow up with your primary care provider. Return to the emergency department immediately if your symptoms worsen or if you develop any numbness, tingling, dizziness, shortness of breath, difficulty breathing, chest pain, blurry vision, loss of vision, nausea, vomiting, abdominal pain, fever, chills, back pain, or any other complaints. Please see the information below about our Patient Portal. If you are not yet enrolled in the [facility] Patient Portal, you will receive an enrollment email invitation following your visit to any [facility] setting. You may also self-enroll in the Patient Portal by visiting our website: [email or web address] The following information is required to access the Patient Portal: - Your [facility] Medical Record Number - Your personal home email address (must match what is in your electronic medical record, Registration staff can assist with this) - Name - Date of Capabilities of the Patient Portal: - Message some providers - View upcoming appointments - Access your health summary, medical history, and visit history - View current conditions and allergies - View procedure and lab results - View your medications, including guidelines, side effects, and precautions - Complete pre-appointment questionnaires requested by your provider - Ready summary reports of your office visits and procedures To access the Patient Portal Mobile Gabriel, follow these directions: - Search [facility] in the Gabriel Store or [employer] Store - Download the Gabriel - Search for [facility] - Enter your login/password Prescriptions: New alum-mag hydroxide-simeth [Maalox Advanced] 200-200-20 mg/5 mL suspension 5 ml PO 7XD PRN (Reason: dyspepsia) Qty: 3000 0RF Rx Instructions: 1 and 3 hours after meals and at bedtime omeprazole 20 mg capsule,delayed release(DR/EC) 20 mg PO DAILY 7 Days Qty: 7 0RF No Action azithromycin 250 mg tablet See Rx Instructions .ROUTE .COMPLEX Qty: 6 0RF Rx Instructions: For 250 mg dose pack: take 500 mg today (day 1), then 250 mg for 4 days (days 2-5) Referrals: [facility] Gastroenter[facility] [Provider Group, Gastroenterology] Referral Note: Call to establish and follow up with a GI Specialist for your acid reflux. Rodney Purdy MD [Primary Care Provider, Medical] Print Language: Swedish
--- NOTE | 2025-01-18 10:48 | ECG_ITS ---
Test Reason : EPGASTRIC PAIN Blood Pressure : */* mmHG Vent. Rate : 65 BPM Atrial Rate : 65 BPM P-R Int : 128 ms QRS Dur : 84 ms QT Int : 416 ms P-R-T Axes : -12 -2 9 degrees QTcB Int : 432 ms Normal sinus rhythm Normal ECG When compared with ECG of 31-Mar-2024 09:30, Premature ventricular complexes are no longer Present Referred By: Jana Leon Electronically Signed By: Jon Mcbride
[2025-01-18 11:11] LABS: MANUAL DIFF FLAG NO
[2025-01-18 11:13] LABS: Hematocrit 43.1 % (37.0-47.0); Hemoglobin 14.5 g/dl (12.0-16.0); Imm Gran Abs Auto 0.03 X10*3/uL (0.00-0.03); Imm Gran Pct Auto 0.3 % (0.0-0.4); Lymphocytes Absolute Auto 0.8 X10*3/uL (1.2-4.9); Mean Corpuscular HGB Conc 33.6 g/dl (31.0-35.0); Mean Corpuscular Hemoglobin 31.9 pg (27.0-33.0); Mean Corpuscular Volume 94.7 fL (80.0-98.0); NRBC Abs Auto 0.000 X10*3/uL (0.0-0.012); NRBC Pct Auto 0.0 /100WBC (0.0-0.2); Platelet Count 318 X10*3/uL (160-400); Red Blood Count 4.55 X10*6/uL (4.20-5.50); White Blood Count 9.1 X10*3/uL (4.8-10.8)
[2025-01-18 11:30] LABS: Alanine Aminotransferase 18 U/L (0-31); Albumin Level 4.7 g/dL (3.5-5.0); Alkaline Phosphatase 83 U/L (39-117); Anion Gap 16 (12-20); Aspartate Amino Transferase 30 U/L (5-31); Blood Urea Nitrogen 12 mg/dL (9-16); Calcium 9.4 mg/dL (8.4-10.2); Carbon Dioxide 28 mmol/L (22-29); Chloride 105 mmol/L (96-108); Creatinine Clr Calc Pharmacy 63.6; Estimated Glomerular Filt Rate > 60; Lipase 18 U/L (8-78); Magnesium 2.1 mg/dL (1.6-2.6); Potassium 3.9 mmol/L (3.3-5.1); Sodium 145 mmol/L (135-145); Total Protein 7.9 g/dL (6.5-8.0)
[2025-01-18 11:37] LABS: Troponin-I High Sensitivity < 2.7 ng/L (<3.5-17.0)
[2025-01-18 12:47] VITALS: BP 130/82; PULSE 78; RESP 16; TEMP 36.8; O2SAT 97
[2025-01-18] MEDS: Magnesium Hydrox/Alum Hydrox 30 ML ORAL.SUSP 15 ML PO (12:47)
== END 2025-01-18 12:48 | disposition home or self-care (01) ==
PROVIDERS: Physician Assistant Medical; Emergency Provider Emergency Medicine; PCP Internal Medicine
DX: K21.9 Gastro-esophageal reflux disease without esophagitis (principal); R11.2 Nausea with vomiting, unspecified; R19.7 Diarrhea, unspecified; R10.13 Epigastric pain; F41.9 Anxiety disorder, unspecified; F32.A Depression, unspecified; B00.9 Herpesviral infection, unspecified; R51.9 Headache, unspecified; F12.90 Cannabis use, unspecified, uncomplicated
CPT/HCPCS: 36415; 80053; 80307; 83690; 83735; 84484; 85025; 93005; 96361; 96374; 96375; 99284; J2405; J2470

== ENCOUNTER → 2025-01-18 10:48 | Outpatient (BNV) | payer OTHER, SELFPAY | PROVIDERS: Emergency Provider Emergency Medicine; PCP Internal Medicine; Visit Provider Internal Medicine Cardiovascular Disease | DX: R10.13 Epigastric pain (principal) | CPT/HCPCS: 93010 ==